=== PATIENT | female | born 1960 | race Caucasian/White ===

== ENCOUNTER 2017-09-24 19:01 | Emergency (ER) | END 2017-09-24 21:28 | disposition home or self-care (01) ==

== ENCOUNTER 2017-10-11 08:28 | Emergency (ER) | END 2017-10-11 09:37 | disposition home or self-care (01) ==

== ENCOUNTER 2018-02-13 11:07 | Emergency (ER) | END 2018-02-13 13:07 | disposition home or self-care (01) ==

== ENCOUNTER 2018-11-28 17:52 | Emergency (ER) | payer OTHER ==
[~2018-11-28] VITALS: Ht 175.3 cm; Wt 94.5 kg
[~2018-11-28 17:52] MED LIST: ASPI-831 PO; BACI28.34 TOP; BEN25 PO; CEPH-443 PO; ELIM TOP; HYDR25SU24 PR; INSU100C SC; LANT3I SC; LORA10CA9 PO; MED4DP PO; MTF1000T PO; POLY17PO6 PO; TRAM50TA2 PO
[2018-11-28 17:56] VITALS: Ht 175.3 cm; Wt 94.5 kg
--- NOTE | 2018-11-28 17:58 | EN ---
Date/Time of Note Date/Time of Note DATE: 11/28/18 TIME: 17:57 ER Progress Note [id number] female with sudden onset of pain while sleeping right shoulder. Pain persists and severe. Limited range of motion of right shoulder with tenderness right posterior capsule. RUSSEL MAHAJAN MD Nov 28, 2018 17:58
[2018-11-28] MEDS ORDERED: KETOROLAC 30 MG INJ IM STA (19:19)
--- NOTE | 2018-11-28 19:29 | ERD ---
ER Documentation Chief Complaint Chief Complaint R shoulder/arm pain x3 days while sleeping, heard "crack" HPI 58-year-old female presents with right shoulder pain for last 3 days. She felt a pop while rolling over while sleeping. She has difficulty raising her right arm. She has a history of intermittent right shoulder pain. She denies any fall. She denies any fevers, vomiting, shortness of breath or chest pain. ROS All systems reviewed and are negative except as per history of present illness. Medications Home Meds Active Scripts Tramadol HCl (Tramadol HCl) 50 Mg Tablet, 50 MG PO Q4 PRN for PAIN, #20 TAB Prov:RUSSEL MAHAJAN MD 11/28/18 Methylprednisolone* (Medrol* DOSE PACK) 4 Mg/Dose-Pack Tab.ds.pk, 4 MG PO . DIRECTED, #1 PACKET Prov:PASILAMARIO GUILLORYAR F 02/13/18 Diphenhydramine Hcl* (Benadryl*) 25 Mg Cap, 25 MG PO Q6 PRN for ITCHING/RASH, #30 TAB Prov:PASILAJONNY GUILLORY F 02/13/18 Loratadine (Loratadine) 10 Mg Capsule, 10 MG PO DAILY, #30 CAP Prov:PASILABANMARIOAR F 02/13/18 Permethrin* (Elimite*) 5% Cr, 1 APPLIC TOP ONCE, #2 TUB Prov:JONNY PARSONS F 02/13/18 Bacitracin* (Bacitracin Zinc Oint*) 28.35 Gm Oint, 1 APPLIC TOP QID, #1 TUB APPLY TO Prov:SALLIE FENTON PA-C 10/11/17 Cephalexin* (Keflex*) 500 Mg Capsule, 500 MG PO QID for 7 Days, CAP Prov:SALLIE FENTON PA-C 10/11/17 Polyethylene Glycol* (Miralax*) 17 Gm Powd.pack, 17 GM PO DAILY, #7 Prov:ROSLYN NEAL MD 11/02/15 Hydrocortisone Acetate* (Anusol-HC*) 25 Mg/Supp.rect Supp.rect, 1 SUPP AL HS, #12 SUPP.RECT Prov:ROSLYN NEAL MD 11/02/15 Aspirin (Aspirin) 81 Mg Chew, 81 MG PO DAILY for 30 Days Prov:AMY TAYLOR NP 09/28/14 Reported Medications Insulin Glargine* (Lantus*) 100 Unit/Ml Soln, 50 UNIT SC BID, EA 04/26/15 Insulin Lispro (Humalog) 100 U/Ml Cartridge, 30 UNITS SC AC MEALS, EA 04/26/15 Metformin* (Glucophage*) 1,000 Mg Tablet, 1000 MG PO BID, TAB 09/26/14 Allergies Allergies: Coded Allergies: codeine (Verified Allergy, Mild, 11/28/18) PMhx/Soc History of Surgery: No Anesthesia Reaction: No Hx Neurological Disorder: No Hx Respiratory Disorders: No Hx Cardiac Disorders: Yes (htn) Hx Psychiatric Problems: No Hx Miscellaneous Medical Probl: Yes (Morbid obesity, HEMORRHOID) Hx Alcohol Use: Yes (social) Hx Substance Use: No Hx Tobacco Use: No Smoking Status: Never smoker FmHx Family History: No diabetes, No coronary disease, No other Physical Exam Vitals Vital Signs Date Temp Pulse Resp B/P (MAP) Pulse Ox O2 O2 Flow FiO2 Time Delivery Rate 11/28/18 98.3 66 18 181/81 98 20:19 (114) 11/28/18 99.4 80 16 149/79 97 17:56 (102) Physical Exam Const: No acute distress Head: Atraumatic Eyes: Normal Conjunctiva ENT: Normal External Ears, Nose and Mouth. Neck: Full range of motion. No meningismus. Resp: Clear to auscultation bilaterally Cardio: Regular rate and rhythm, no murmurs Abd: Soft, non tender, non distended. Normal bowel sounds Skin: No petechiae or rashes Back: No midline or flank tenderness Ext: No cyanosis, or edema or tenderness right posterior shoulder capsule. No deformities. Limited range of motion due to pain right upper extremity. Right upper extremity neurovascular intact. Neur: Awake and alert Psych: Normal Mood and Affect Results 24 hrs Current Medications Medications Dose Sig/Cam Start Time Status Last (Trade) Ordered Route PRN Stop Time Admin Dose Reason Admin Tramadol 50 mg ONCE ONCE 11/28/18 DC 11/28/18 HCl PO 19:30 19:31 (Ultram) 11/28/18 19:31 Ketorolac 30 mg ONCE STAT 11/28/18 DC 11/28/18 Tromethamine IM 19:19 19:28 (Toradol) 11/28/18 19:20 Procedures/MDM X-ray right shoulder 3V Interpreted by me: Bones: No fracture Joints: No dislocation Foreign body: None. Impression-calcific tendinosis right shoulder. Patient given Toradol 30 mg IM and tramadol 50 mg by mouth. Patient resents with right shoulder pain after awkward movement while sleeping 3 days ago. She has signs of calcific tendinosis. She is advised to seek out primary care and orthopedist for evaluation of tendons. She is to return for fevers, vomiting, shortness breath or chest pain. Patient was advised to perform range of motion exercises to prevent frozen shoulder. The patient was stable with no new complaints during the ER course. Clinically, there is no current evidence to suggest meningitis, sepsis, acute abdomen, pneumonia, stroke, acute coronary syndrome, pulmonary embolism, aortic dissection or any other emergent condition appearing to require further evaluation or hospitalization. Patient counseled regarding my diagnostic impression and care plan. Prior to discharge all questions answered. Pt agrees with treatment plan and understands strict return precautions. Pt is instructed to follow up with primary care provider within 24- 48 hours. Precautionary instructions provided including instructions to return to the ER if not improving or for any worsening or changing symptoms or concerns. Patient was placed in a right arm sling by request but advised to intermittently use arm to prevent stiffness. Patient neurovascular intact after sling. Disclaimer: Inadvertent spelling and grammatical errors are likely due to EHR/dictation software use and do not reflect on the overall quality of patient care. Also, please note that the electronic time recorded on this note does not necessarily reflect the actual time of the patient encounter. Departure Diagnosis: Primary Impression: Tendonitis Additional Impression: Shoulder pain Chronicity: acute Laterality: right Qualified Codes: M25.511 - Pain in right shoulder Condition: Stable Patient Instructions: Tendonitis, Shoulder Pain (Uncertain Cause) Referrals: EN SEAY MD [facility] Hours: Mon-Mon 9:00 AM - 5:00 PM Additional Instructions: X-ray shows calcific tendinosis. Recommend orthopedic evaluation for persistent pain for further evaluation treatment. Recommend range of motion to prevent stiffness of shoulder. Apply ice at home as well. Recheck for fevers, new worsening symptoms otherwise with primary doctor and orthopedist as advised. RUSSEL MAHAJAN MD Nov 28, 2018 19:29
[2018-11-28] MEDS ORDERED: traMADol 50 MG TAB PO ONE (19:30)
[2018-11-28 20:19] VITALS: BP 181/81; PULSE 66; RESP 18
== END 2018-11-28 20:20 | disposition home or self-care (01) ==
LOC: EDUNIT# 17:52 → FTE 17:52
DX: M77.9 Enthesopathy, unspecified (principal); I10 Essential (primary) hypertension; Z79.82 Long term (current) use of aspirin; Z79.4 Long term (current) use of insulin
CPT/HCPCS: 73030; 96372; J1885; Z7502; Z7610

== ENCOUNTER 2018-12-07 21:58 | Emergency (ER) | payer OTHER ==
[~2018-12-07] VITALS: Ht 175.3 cm; Wt 91.8 kg
[2018-12-07 22:03] VITALS: Ht 175.3 cm; Wt 91.8 kg
[2018-12-08] MEDS ORDERED: IOHEXOL 100 ML ONE (00:38)
[2018-12-08] MEDS ORDERED: SOD CHLORIDE 0.9% 100 ML ONE (00:38)
[2018-12-08] MEDS ORDERED: morphine 4 MG/ML VIAL IV STA (02:46)
[2018-12-08 03:17] VITALS: BP 186/91; PULSE 84; RESP 18
== END 2018-12-08 03:23 | disposition home or self-care (01) ==
LOC: FTE 21:58 → E/R 12-08 03:23
DX: M25.511 Pain in right shoulder (principal); I10 Essential (primary) hypertension; E11.9 Type 2 diabetes mellitus without complications; D72.829 Elevated white blood cell count, unspecified; D47.3 Essential (hemorrhagic) thrombocythemia; E87.6 Hypokalemia; E87.3 Alkalosis; E66.01 Morbid (severe) obesity due to excess calories; Z79.82 Long term (current) use of aspirin; Z79.4 Long term (current) use of insulin; Z68.29 Body mass index [BMI] 29.0-29.9, adult
CPT/HCPCS: 36415; 71045; 71275; 73030; 80053; 81001; 83690; 85025; 85378; 85610; 85730; 93971; 96374; J2270; Q9967; Z7502; Z7610